=== PATIENT | female | born 1975 | race Caucasian/White ===

== ENCOUNTER 2024-02-10 01:28 | Emergency (ER) | payer MEDICAID ==
[~2024-02-10] VITALS: Ht 167.6 cm; Wt 72.0 kg
[2024-02-10 01:41] VITALS: O2SAT 98
[2024-02-10] MEDS: ONDANSETRON HCL 4MG/2ML INJ IV ONE (02:00)
[2024-02-10 02:46] LABS: BASOPHILS % 0.3 % (0.0-2.0); DIFFERENTIAL COMMENT 0; EOSINOPHILS % 0.3 % (0.0-5.0); HEMATOCRIT. 32.5 % (36.0-48.0); HEMOGLOBIN. 9.8 g/dL (12.0-16.0); LYMPHOCYTES % 19.4 % (20.0-50.0); MEAN CORPUSCULAR HEMOGLOBIN 23.2 pg (28.0-32.0); MEAN CORPUSCULAR HGB CONC 30.3 g/dL (31.0-37.0); MEAN CORPUSCULAR VOLUME 76.5 fL (81.0-99.0); MEAN PLATELET VOLUME 9.1 fl (7.4-10.4); MONOCYTES % 6.1 % (2.0-8.0); NEUTROPHILS % 73.9 % (40.0-76.0); PLATELET 313 x1000/uL (130-400); RED BLOOD CELL COUNT 4.25 mill/uL (4.2-5.4); RED CELL DISTRIBUTION WIDTH 19.6 % (11.6-14.6)
[2024-02-10 02:52] LABS: CHLORIDE 112 mEq/L (98-107); POTASSIUM 3.2 mEq/L (3.5-5.1); SODIUM 143 mEq/L (136-145)
[2024-02-10 02:53] LABS: CARBON DIOXIDE 20 mEq/L (21-32)
[2024-02-10 02:54] LABS: CALCIUM 8.3 mg/dL (8.7-10.4); HCG SCREEN NEGATIVE
[2024-02-10 02:58] LABS: CREATININE 0.6 mg/dL (0.6-1.0); GLUCOSE 153 mg/dL (70-105)
[2024-02-10 02:59] LABS: ACETAMINOPHEN < 2 ug/mL (10-30); ALANINE AMINOTRANSFERASE 11 IU/L (10-49); AMMONIA 18 uMol/L (<32); ASPARTATE AMINOTRANSFERASE 16 IU/L (<34); ETHANOL BLOOD 254 mg/dL (<10)
[2024-02-10 03:00] LABS: ALBUMIN 4.3 g/dL (3.2-4.8); UREA NITROGEN BLOOD < 5 mg/dL (9-23)
[2024-02-10 03:01] LABS: BILIRUBIN TOTAL 0.2 mg/dL (0.1-1.0); PROTEIN TOTAL 7.2 g/dL (6.0-8.3)
[2024-02-10] MEDS: ACETAMINOPHEN 1000MG/100ML 100 ML IV ONE (04:09)
[2024-02-10 10:30] VITALS: BP 100/56; PULSE 82; RESP 19; TEMP 98.2
== END 2024-02-10 10:39 | disposition home or self-care (01) ==
LOC: EDBD 01:34 → ER 01:34
DX: S01.01XA Laceration without foreign body of scalp, initial encounter (principal); E11.9 Type 2 diabetes mellitus without complications; F10.129 Alcohol abuse with intoxication, unspecified; R41.82 Altered mental status, unspecified; W18.39XA Other fall on same level, initial encounter; Y93.89 Activity, other specified; Y92.89 Other specified places as the place of occurrence of the external cause; Y99.8 Other external cause status; Y90.8 Blood alcohol level of 240 mg/100 ml or more
CPT/HCPCS: 80053; 80307; 80329; 80320; 82140; 84703; 83690; 85025; 36415; 70450; 72125; 96365; 96366; 96375; 99285; J2405; Z7610 ×5; G0480; J0131